=== PATIENT | female | born 1940 | race Caucasian/White ===

== ENCOUNTER 2016-07-07 17:14 | Emergency (ER) | payer MEDICARE ==
[~2016-07-07] VITALS: Ht 167.6 cm; Wt 68.0 kg
[~2016-07-07 17:14] MED LIST: ASPI-504 PO; ATOR20TA PO; CALC600T12 PO; MULT-954 PO; OMEG300C3 PO; cq10 PO
--- OUTSIDE RECORDS SUMMARY | 2016-07-07 17:18 | XMS REPORT | Continuity of Care Document ---
Author Author [facility] Organization [facility] Address Unknown Phone Unavailable Care Team Providers Care State Wildlife Officer Name Role Phone Sabas, Ranjan Hernandez MD PP [phone] Insurance Providers Payer Name Policy Number Subscriber Name Relationship Keith Pettit [facility] Supp [id number] Delores Garcia Self / Same As Patient Medicare A And B [id number] Delores Garcia Self / Same As Patient Advance Directives Directive Response Recorded Date Advanced Directives Yes 03/10/13 7:36am Type Durable Power of Legal Consultant 03/10/13 7 :36am Type Living Will 03/10/13 7:36am Problems No Known Problems or Medical conditions. Allergies, Adverse Reactions, Alerts Allergen Type Severity Reaction Last Updated No Known Drug Allergies 03/09/13 Medications Medication Dose Units Route Sig Qty Days Atorvastatin (Lipitor) 20 Mg PO DAILY 1 Aspirin (Baby Aspirin) 81 Mg PO DAILY 1 [cq10] 10 PO DAILY 10 [place]-3 Fatty Acids (Fish Oil) 300 Mg PO DAILY Multivitamin (Multi Vitamin Daily) 1 Each PO DAILY 1 Calcium Carbonate (Calcium) 600 Mg PO DAILY 1 Response Recorded Date/Time Status not known Unknown Results No Known Relevant Diagnostic Tests, Laboratory Data and/or Discharge Summary. Procedures Procedure Code Date COMP SCREEN MAMMOGRAM ADD-ON 29330 G0202 01/24/13
[2016-07-07] MEDS ORDERED: UBID100C8 PO (17:49)
[2016-07-07] MEDS ORDERED: HYDROmorphone 1 MG/ML (DILAUDID) SYRINGE IV ONE (18:50)
[2016-07-07] MEDS ORDERED: ONDANSETRON 2 MG/ML (Z0FRAN) 2 ML VIAL IV ONE (18:50)
[2016-07-07 19:15] LABS: BASOPHILS % (AUTO) 0 % (0-2); EOSINOPHILS # (AUTO) 0.1 10^3uL; EOSINOPHILS % (AUTO) 1 % (0-4); LYMPHOCYTES # (AUTO) 2.1 X10^3; MEAN CORPUSCULAR HEMOGLOBIN 29.4 PG (26.0-34.0); MEAN CORPUSCULAR VOLUME 86 FL (80-100); MEAN PLATELET VOLUME 9.9 FL (6.0-9.5); MONOCYTES # (AUTO) 0.7 X10^3; MONOCYTES % (AUTO) 8 % (3-11); NEUTROPHILS # (AUTO) 6.6 X10^3; NEUTROPHILS % (AUTO) 69 % (51-67); PLATELET COUNT 342 10^3uL (150-450); WHITE BLOOD COUNT 9.59 10^3uL (4.0-11.0)
[2016-07-07 19:46] LABS: ALBUMIN 4.5 g/dL (3.4-5.0); ANION GAP 16.6 MEQ/L (3-15); CALCULATED IONIZED CALCIUM 4.1 mg/dL (3.8-4.6); TOTAL PROTEIN 7.6 g/dL (6.4-8.5)
[2016-07-07 23:01] VITALS: BP 114/48
--- NOTE | 2016-07-08 08:38 | Diagnostic Imaging Report ---
INDICATION: Pain. FINDINGS: There is a right femoral neck fracture laterally appearing to involve its subcapital portion without dislocation. This is better visualized on the separately dictated two-view right hip. The contralateral left hip is unremarkable. 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 No symphyseal or SI joint diastasis. IMPRESSION: Right femoral neck fracture without dislocation. Dictated by: Dictated on workstation # [id number]
--- NOTE | 2016-07-08 08:48 | Diagnostic Imaging Report ---
CLINICAL INDICATION: Patient status post fall with hip pain. EXAM: X-ray of the right hip, AP and crosstable lateral views. COMPARISON: X-ray of the pelvis AP view dated 07/07/2016. FINDINGS: There is a transverse fracture through the proximal right femoral neck/subcapital region which is mildly impacted with ventral apex angulation. The femoral acetabular joint is otherwise intact. There is degenerative sclerosis and spurring of the symphysis pubis region. There is mild spurring of the right acetabular roof. The visualized portions of the sacrum, sacroiliac joint and right hemipelvis shows no other significant abnormality. IMPRESSION: Transverse fracture of the proximal right femoral neck/subcapital region which is mildly impacted with ventral apex angulation. Dictated by: Dictated on workstation # [id number]
== END 2016-07-07 21:28 | disposition short-term general hospital (02) ==
LOC: ED 17:16
DX: S72.011A Unspecified intracapsular fracture of right femur, initial encounter for closed fracture (principal); W01.198A Fall on same level from slipping, tripping and stumbling with subsequent striking against other object, initial encounter; Y93.89 Activity, other specified; Y92.009 Unspecified place in unspecified non-institutional (private) residence as the place of occurrence of the external cause
CPT/HCPCS: 36415; 72170; 73502; 80053; 85025; 85610; 85730; 96374; 96375; 99283; J1170; J2405